=== PATIENT | female | born 1935 | race Caucasian/White ===

== ENCOUNTER 2017-10-07 08:58 | Day surgery (SDC) | payer MEDICARE, OTHER ==
[~2017-10-07] VITALS: Ht 162.6 cm; Wt 104.3 kg
[~2017-10-07 08:58] MED LIST: ALLER TEC PO; AMLO10 PO; AMLO5 PO; ASPI325 PO; AZIT500 PO; DOCU100 PO; Enalapril-Hctz1 EACH PO; FURO40 PO; GLUCOSAMINE CH1 EAC3 PO; Indapamide2.5 MG PO; LEVSOD50 PO; METO100ER PO; METO25 PO; METO50ER PO; METOPROLOL PO; MULTI VITAMIN1 EACH PO; Mucinex Dm Tab1 EAC1 PO; OMEPRAZOLE MAGN20 MG PO; OXYC5 PO; POTCHL10ER PO; PRAV20 PO; Prozac20 MG PO; Verapamil ER300 MG PO
[2017-10-07] MEDS ORDERED: ATOR40TA PO (10:27)
[2017-10-08 04:31] LABS: BASOPHILS ABSOLUTE AUTO 0.06 K/mm3 (0.00-0.23); BASOPHILS PERCENT AUTO 0 % (0-2); EOSINOPHILS ABSOLUTE AUTO 0.12 K/mm3 (0.00-0.68); EOSINOPHILS PERCENT AUTO 1 % (0-6); Hematocrit 28.4 % (33.0-51.0); Hemoglobin 9.3 g/dL (11.5-16.0); IMMATURE GRAN ABSOLUTE AUTO 0.04 K/mm3 (0.00-0.10); IMMATURE GRAN PERCENT AUTO 0 % (0-1); LYMPHOCYTES ABSOLUTE AUTO 1.34 K/mm3 (0.84-5.20); LYMPHOCYTES PERCENT AUTO 9 % (21-46); MONOCYTES ABSOLUTE AUTO 2.46 K/mm3 (0.16-1.47); MONOCYTES PERCENT AUTO 16 % (4-13); Mean Corpuscular HGB 30.5 pg (26.0-34.0); Mean Corpuscular HGB Conc 32.7 g/dL (31.5-36.5); Mean Corpuscular Volume 93 fL (80-100); Mean Platelet Volume 10.1 fL (9.1-12.4); NEUTROPHILS ABSOLUTE AUTO 10.99 K/mm3 (1.96-9.15); NEUTROPHILS PERCENT AUTO 73 % (41-73); Platelet Count 242 K/mm3 (150-400); RDW Standard Deviation 43.9 fL (35.1-46.3); Red Blood Cell Count 3.05 M/mm3 (3.80-5.20); White Blood Cell Count 15.01 K/mm3 (4.00-11.30)
[2017-10-08 04:51] LABS: Bun/Creatinine Ratio 24.8 (12.0-20.0); Calcium, Blood 8.9 mg/dL (8.5-10.1); Creatinine, Blood 1.37 mg/dL (0.40-1.00); Magnesium, Blood 1.5 mg/dL (1.6-2.4); Potassium, Blood 3.7 mmol/L (3.5-5.5)
[2017-10-08] MEDS ORDERED: WARF2.5 PO (18:27)
[2017-10-08] MEDS ORDERED: OXYC5 PO (18:32)
== END 2017-10-08 19:24 | disposition home or self-care (01) ==
LOC: ORSCMMR 08:58 → ORD 10:30 → ORSCMMR 10:30 → SURS 14:58 → ORSCMMR 22:42
PROVIDERS: Orthopaedic Surgery
PROC: 0SRC0J9 Replacement of Right Knee Joint with Synthetic Substitute, Cemented, Open Approach (ICD-10-PCS; principal; 2017-10-07 10:30)
DX: M17.11 Unilateral primary osteoarthritis, right knee (principal); I10 Essential (primary) hypertension; G47.33 Obstructive sleep apnea (adult) (pediatric); E03.9 Hypothyroidism, unspecified; E78.00 Pure hypercholesterolemia, unspecified; E66.01 Morbid (severe) obesity due to excess calories; Z68.39 Body mass index [BMI] 39.0-39.9, adult; Z79.899 Other long term (current) drug therapy
CPT/HCPCS: 36415; 73560-RT; 80048; 83735; 85025; 86850; 86900; 86901; 88300; 94762; 97110; 97116; 97161; 97530; C1713; C1776; G8978; G8979; G8980; J0171; J0690; J0735; J1885; J2250; J2405; J2795; J3010; J7120

== ENCOUNTER → 2020-10-25 | Outpatient (CLI) | payer MEDICARE, OTHER ==
[~2020-10-25] MED LIST changes: +ATOR40TA PO; +BUME1 PO; +FAMO20 PO; +HYDR10 PO; +SYMBICORT 80-10.2 GM IH; +VITAMIN B125000 MC1 PO; +WARF2.5 PO; +[UNRECOGNIZED DRUG - OTHER] PO
[2020-10-25 16:27] LABS: Source, Urine Clean Catch
[2020-10-25 17:25] LABS: Appearance, Urine Clear (Clear); Bilirubin, Urine Neg (Neg); Blood, Urine Neg (Neg); Color, Urine Yellow (P-Yellow); Glucose Qualitative, Urine Neg (Neg); Ketones, Urine Neg (Neg); Leukocyte Esterase, Urine Neg (Neg); Nitrite, Urine Neg (Neg); Protein, Urine 2+ (Neg); Urobilinogen, Urine NORM (Normal)
[2020-10-25 17:39] LABS: Bacteria Few /hpf; Red Blood Cells, Urine 0-2 /hpf (0-2); Squamous Epithelial Cells Few /hpf (Few)
[2020-10-25 18:01] LABS: Creatinine, Urine Random 51.8 mg/dL (27.00-270.00); Protein, Urine Random 41.4 mg/dL (0.0-11.9); Protein/Creat Ratio, Ur Random 0.8
== END | disposition home or self-care (01) ==
LOC: LAB SHORT 14:45 → LAB 14:45
PROVIDERS: Internal Medicine
DX: N18.5 Chronic kidney disease, stage 5 (principal)
CPT/HCPCS: 81001; 82570; 84156

== ENCOUNTER 2020-11-01 02:43 | Day surgery (SDC) | payer MEDICARE, OTHER ==
[~2020-11-01 02:43] MED LIST changes: -BUME1 PO; -FAMO20 PO; -HYDR10 PO; -SYMBICORT 80-10.2 GM IH; -VITAMIN B125000 MC1 PO; -[UNRECOGNIZED DRUG - OTHER] PO
[2020-11-01] MEDS ORDERED: HYDR10 PO ×2 (16:41→16:45)
[2020-11-01] MEDS ORDERED: VITAMIN B125000 MC1 PO (16:43)
[2020-11-01] MEDS ORDERED: [UNRECOGNIZED DRUG - OTHER] PO (16:44)
[2020-11-01] MEDS ORDERED: FAMO20 PO (16:44)
[2020-11-01] MEDS ORDERED: BUME1 PO (16:44)
[2020-11-01] MEDS ORDERED: SYMBICORT 80-10.2 GM IH (16:45)
== END 2020-11-01 17:48 | disposition home or self-care (01) ==
LOC: ATC 02:43
DX: E83.42 Hypomagnesemia (principal); I13.2 Hypertensive heart and chronic kidney disease with heart failure and with stage 5 chronic kidney disease, or end stage renal disease; N18.5 Chronic kidney disease, stage 5; I50.9 Heart failure, unspecified; E03.9 Hypothyroidism, unspecified; Z88.0 Allergy status to penicillin; Z88.8 Allergy status to other drugs, medicaments and biological substances; Z88.1 Allergy status to other antibiotic agents; Z91.041 Radiographic dye allergy status
CPT/HCPCS: 96365; 96366; J3475

== ENCOUNTER 2021-03-06 06:14 | Day surgery (SDC) | payer MEDICARE, OTHER ==
[~2021-03-06] VITALS: Ht 160 cm; Wt 109.0 kg
[~2021-03-06 06:14] MED LIST changes: +BUME1 PO; +FAMO20 PO; +HYDR10 PO; +SYMBICORT 80-10.2 GM IH; +VITAMIN B125000 MC1 PO; +[UNRECOGNIZED DRUG - OTHER] PO
[2021-03-06] MEDS ORDERED: HYDRA25 PO (06:39)
[2021-03-06] MEDS ORDERED: HYDCHL25 PO (06:40)
[2021-03-06] MEDS ORDERED: MAGNESIUM OXID500 MG PO (06:41)
--- NOTE | 2021-03-06 09:41 | NUR ---
PT HOB RAISED TO 45 DEGREES, RIGHT GROIN SITE SOFT NON TENDER WITH NO ACTIVE BLEEDING, OOZING, OR PAIN NOTED. PROVIDED WITH BREAKFAST TRAY, TOLERATES WITH NO DIFFICULTIES. C/O RIGHT ARM PAIN, IV ASSESSED, DOES NOT APPEAR TO BE INFILTRATED. REQUEST AND MEDICATED WITH PRN TYLENOL. WILL CONTINUE TO MONITOR. CALL LIGHT IN REACH.
--- NOTE | 2021-03-06 11:30 | NUR ---
PT OUT OF BED, AMBULATES WITH SLOW GAIT TO RESTROOM, 1 PER ASSIST. UNMEASURED VOID. RIGHT GROIN SITE REMAINS SOFT NON TENDER WITH NO ACTIVE BLEEDING OR OOZING NOTED. PT GETS DRESSED WITH NO NEEDED ASSISTANCE. IV REMOVED FROM RAC WITH CATH INTACT, PRESSURE DRESSING APPLIED.
--- NOTE | 2021-03-06 12:00 | NUR ---
PT VERBALIZED UNDERSTANDING OF D/C INSTRUCTIONS. PAPERWORK PROVIDED IN FOLDER. PT DAUGHTER ARRIVES TO DRIVE PT HOME, TAKEN OUT TO PRIVATE VEHICLE VIA W/C. NO ACUTE DISTRESS NOTED AT TIME OF DISCHARGE.
== END 2021-03-06 12:00 | disposition home or self-care (01) ==
LOC: MHTC 06:14
DX: I25.10 Atherosclerotic heart disease of native coronary artery without angina pectoris (principal); I35.0 Nonrheumatic aortic (valve) stenosis; I11.0 Hypertensive heart disease with heart failure; I50.9 Heart failure, unspecified
CPT/HCPCS: 76937; 93458; 99152; 99153; A9270; C1769; C1894; J1644; J2250; J3010; J7030; J7050; Q9967

== ENCOUNTER 2021-03-28 08:32 | Day surgery (SDC) | payer MEDICARE, OTHER ==
[~2021-03-28] VITALS: Ht 160 cm; Wt 100.7 kg
[~2021-03-28 08:32] MED LIST changes: +HYDCHL25 PO; +HYDRA25 PO; +MAGNESIUM OXID500 MG PO
--- NOTE | 2021-03-28 10:05 | NUR ---
PATIENT TO THE CATHLAB, WILL PREMEDICATE FOR IODINE ALLERGY IN THE LAB. PATIENT WAS GIVEN ASPIRIN AND PLAVIX ORDERED. SEE MEDICATION SHEET FOR ORDERS AND DOSAGE.
--- NOTE | 2021-03-28 12:15 | NUR ---
PATIENT RETURNS FROM THE CATHLAB WITH RIGHT RADIAL TR BAND IN PLACE AND RIGHT GROIN ANGIOSEAL SITE. BOTH CDI, NO HEMATOMA, NO BLEEDING. PATIENT PLACED ON THE MONITOR AND CALLED FOR A OVERNIGHT OBS BED. PENDING ASSIGNMENT FROM POWER REACTOR OPERATOR.
--- NOTE | 2021-03-28 12:17 | NUR ---
SBAR GIVEN TO EZRA BALDWIN
--- NOTE | 2021-03-28 12:32 | NUR ---
REPORT CALLED TO EZRA SAMUEL AND PATIENT TRANSFERED TO PCU #2. VVS. NO PAIN NOTED.
--- NOTE | 2021-03-28 13:14 | NUR ---
ADMISSION PATIENT TO PCU 2 FROM [facility]. REPORT RECIEVED FROM [facility] STAFF. TR BAND IN PLACE ON RIGHT WRIST, INFLATED WITH 20 MLS. NO BLEEDING UNDER TR BAND, CAP REFILL LESS THAN 2 SECONDS. RIGHT FEMORAL SITE COVERED WITH ANGIO SEAL. DRESSING C/D/I. PATIENT DENIES NUMBNESS OR TINGLING IN RIGHT ARM/LEG. PATIENT ALSO DENIES CHEST PAIN OR PRESSURE AT THIS TIME.
[2021-03-29 06:36] LABS: Bun/Creatinine Ratio 24.8 (12.0-20.0); Calcium, Blood 8.6 mg/dL (8.5-10.1); Creatinine, Blood 2.22 mg/dL (0.40-1.00); Potassium, Blood 3.6 mmol/L (3.5-5.5)
[2021-03-29 06:44] LABS: BASOPHILS ABSOLUTE AUTO 0.06 K/mm3 (0.00-0.23); BASOPHILS PERCENT AUTO 1 % (0-2); EOSINOPHILS ABSOLUTE AUTO 0.13 K/mm3 (0.00-0.68); EOSINOPHILS PERCENT AUTO 1 % (0-6); Hematocrit 28.1 % (33.0-51.0); IMMATURE GRAN ABSOLUTE AUTO 0.05 K/mm3 (0.00-0.10); IMMATURE GRAN PERCENT AUTO 0 % (0-1); LYMPHOCYTES ABSOLUTE AUTO 2.56 K/mm3 (0.84-5.20); LYMPHOCYTES PERCENT AUTO 20 % (21-46); MONOCYTES ABSOLUTE AUTO 1.75 K/mm3 (0.16-1.47); MONOCYTES PERCENT AUTO 14 % (4-13); Mean Corpuscular HGB 29.6 pg (26.0-34.0); Mean Corpuscular Volume 92 fL (80-100); Mean Platelet Volume 10.8 fL (9.1-12.4); NEUTROPHILS ABSOLUTE AUTO 8.21 K/mm3 (1.96-9.15); NEUTROPHILS PERCENT AUTO 64 % (41-73); Platelet Count 280 K/mm3 (150-400); RDW Standard Deviation 51.1 fL (35.1-46.3); Red Blood Cell Count 3.04 M/mm3 (3.80-5.20); White Blood Cell Count 12.76 K/mm3 (4.00-11.30)
[2021-03-29] MEDS ORDERED: ASPI81CH PO ×2 (08:50→08:51)
[2021-03-29] MEDS ORDERED: PLAVIX75 MG PO (08:52)
--- NOTE | 2021-03-29 12:07 | NUR ---
DISCHARGE PATIENT ALERT AND ORIENTED X4. VSS. DENIES CHEST PAIN OR PRESSURE. NO BLEEDING FROM RIGHT RADIAL OR RIGHT GROIN SITE. DISCHARGE PAPERWORK DISCUSSED WITH DAUGHTER AT BEDSIDE. PATIENT DISCHARGED VIA WHEELCHAIR WITH PCU STAFF. BELONGINGS ACCOMPANIED THE PATIENT.
== END 2021-03-29 12:00 | disposition home or self-care (01) ==
LOC: MHTC 08:32 → PCU 12:39 → MHTC 03-29 12:00
PROVIDERS: Internal Medicine Cardiovascular Disease
DX: I25.10 Atherosclerotic heart disease of native coronary artery without angina pectoris (principal); I35.0 Nonrheumatic aortic (valve) stenosis; I13.0 Hypertensive heart and chronic kidney disease with heart failure and stage 1 through stage 4 chronic kidney disease, or unspecified chronic kidney disease; I50.9 Heart failure, unspecified; N18.9 Chronic kidney disease, unspecified; I25.5 Ischemic cardiomyopathy; Z88.0 Allergy status to penicillin; Z88.1 Allergy status to other antibiotic agents; Z91.041 Radiographic dye allergy status; Z79.82 Long term (current) use of aspirin; Z79.899 Other long term (current) drug therapy
CPT/HCPCS: 36415; 76937; 80048; 85025; 85347; 92978; 93005; 93010; 99152; 99153; A9270; C1725; C1753; C1760; C1769; C1874; C1887; C1894; C9600; J1200; J1644; J1720; J2250; J3010; J7030; J7040; J7050; Q9967

== ENCOUNTER 2021-11-08 01:32 | Day surgery (SDC) | payer MEDICARE, OTHER ==
[~2021-11-08 01:32] MED LIST changes: +ASPI81CH PO; +PLAVIX75 MG PO; +POTA10T PO; -POTCHL10ER PO
[2021-11-08] MEDS ORDERED: THERA-D2000 UNIT PO (10:36)
[2021-11-08] MEDS ORDERED: Aspirin325 MG PO (10:36)
[2021-11-08] MEDS ORDERED: ALLEGRA ALLERG180 MG PO (10:39)
[2021-11-08] MEDS ORDERED: DOCU100 PO (10:40)
== END 2021-11-08 11:16 | disposition home or self-care (01) ==
LOC: ATC 01:32
DX: I13.0 Hypertensive heart and chronic kidney disease with heart failure and stage 1 through stage 4 chronic kidney disease, or unspecified chronic kidney disease (principal); N18.4 Chronic kidney disease, stage 4 (severe); D63.1 Anemia in chronic kidney disease; I50.9 Heart failure, unspecified; I35.0 Nonrheumatic aortic (valve) stenosis; E78.5 Hyperlipidemia, unspecified; E03.9 Hypothyroidism, unspecified; G47.33 Obstructive sleep apnea (adult) (pediatric); Z88.0 Allergy status to penicillin; Z88.8 Allergy status to other drugs, medicaments and biological substances; Z88.1 Allergy status to other antibiotic agents; Z91.041 Radiographic dye allergy status
CPT/HCPCS: 96365; J2916

== ENCOUNTER 2021-11-13 16:44 | Emergency (ER) | payer MEDICARE, OTHER ==
[~2021-11-13] VITALS: Ht 162.6 cm; Wt 113.4 kg
[~2021-11-13 16:44] MED LIST changes: +ALLEGRA ALLERG180 MG PO; +Aspirin325 MG PO; +THERA-D2000 UNIT PO
[2021-11-13 17:50] LABS: Influenza A, PCR NEGATIVE (NEGATIVE); Influenza B, PCR NEGATIVE (NEGATIVE); Resp Syncytial Virus, PCR NEGATIVE (NEGATIVE); SARS-Cov-2 (COVID-19) PCR, MMC NEGATIVE (NEGATIVE)
[2021-11-13 18:16] LABS: BASOPHILS ABSOLUTE AUTO 0.05 K/mm3 (0.00-0.23); BASOPHILS PERCENT AUTO 1 % (0-2); EOSINOPHILS ABSOLUTE AUTO 0.32 K/mm3 (0.00-0.68); EOSINOPHILS PERCENT AUTO 4 % (0-6); Hematocrit 29.5 % (33.0-51.0); Hemoglobin 9.5 g/dL (11.5-16.0); IMMATURE GRAN ABSOLUTE AUTO 0.06 K/mm3 (0.00-0.10); IMMATURE GRAN PERCENT AUTO 1 % (0-1); LYMPHOCYTES ABSOLUTE AUTO 1.39 K/mm3 (0.84-5.20); LYMPHOCYTES PERCENT AUTO 16 % (21-46); MONOCYTES ABSOLUTE AUTO 1.87 K/mm3 (0.16-1.47); MONOCYTES PERCENT AUTO 21 % (4-13); Mean Corpuscular HGB 29.3 pg (26.0-34.0); Mean Corpuscular HGB Conc 32.2 g/dL (31.5-36.5); Mean Corpuscular Volume 91 fL (80-100); NEUTROPHILS ABSOLUTE AUTO 5.26 K/mm3 (1.96-9.15); NEUTROPHILS PERCENT AUTO 59 % (41-73); Platelet Count 317 K/mm3 (150-400); RDW Standard Deviation 46.4 fL (35.1-46.3); Red Blood Cell Count 3.24 M/mm3 (3.80-5.20); White Blood Cell Count 8.95 K/mm3 (4.00-11.30)
[2021-11-13 18:41] LABS: Albumin, Blood 3.4 g/dL (3.4-5.0); Albumin/Globulin Ratio 0.7 (0.8-1.8); Bilirubin, Total 0.2 mg/dL (0.1-1.0); Bun/Creatinine Ratio 19.9 (12.0-20.0); Calcium, Blood 9.7 mg/dL (8.5-10.1); Creatinine, Blood 2.61 mg/dL (0.40-1.00); Globulin, Blood 4.9 g/dL (2.2-4.0); Potassium, Blood 4.4 mmol/L (3.5-5.5); Total Protein, Blood 8.3 g/dL (6.4-8.2)
== END 2021-11-13 23:31 | disposition home or self-care (01) ==
LOC: ER 16:44
PROVIDERS: Physician Assistant
DX: J06.9 Acute upper respiratory infection, unspecified (principal); J98.01 Acute bronchospasm; I10 Essential (primary) hypertension; E03.9 Hypothyroidism, unspecified; K21.9 Gastro-esophageal reflux disease without esophagitis; Z79.899 Other long term (current) drug therapy; Z79.02 Long term (current) use of antithrombotics/antiplatelets; Z79.52 Long term (current) use of systemic steroids; Z88.0 Allergy status to penicillin; Z88.8 Allergy status to other drugs, medicaments and biological substances; Z91.041 Radiographic dye allergy status; Z20.822 Contact with and (suspected) exposure to COVID-19
CPT/HCPCS: 0241U; 36415; 71046; 80053; 83880; 84484; 85025; 93005; 93010; 94640; 94664; A9270

== ENCOUNTER 2021-11-21 01:26 | Day surgery (SDC) | payer MEDICARE, OTHER | END 2021-11-21 11:45 | disposition home or self-care (01) | LOC: ATC 01:26 | DX: I12.9 Hypertensive chronic kidney disease with stage 1 through stage 4 chronic kidney disease, or unspecified chronic kidney disease (principal); N18.4 Chronic kidney disease, stage 4 (severe); D63.1 Anemia in chronic kidney disease; E78.5 Hyperlipidemia, unspecified; E03.9 Hypothyroidism, unspecified; G47.33 Obstructive sleep apnea (adult) (pediatric); Z88.0 Allergy status to penicillin; Z88.8 Allergy status to other drugs, medicaments and biological substances; Z79.82 Long term (current) use of aspirin; Z79.899 Other long term (current) drug therapy | CPT/HCPCS: 96365; J2916 ==

== ENCOUNTER 2021-12-05 03:35 | Day surgery (SDC) | payer MEDICARE, OTHER ==
--- NOTE | 2021-12-05 11:02 | NUR ---
LAB DRAWN FROM Jonathan COLIN.
[2021-12-05 11:07] LABS: BASOPHILS ABSOLUTE AUTO 0.05 K/mm3 (0.00-0.23); BASOPHILS PERCENT AUTO 0 % (0-2); EOSINOPHILS ABSOLUTE AUTO 0.09 K/mm3 (0.00-0.68); EOSINOPHILS PERCENT AUTO 1 % (0-6); Hematocrit 28.4 % (33.0-51.0); IMMATURE GRAN ABSOLUTE AUTO 0.45 K/mm3 (0.00-0.10); IMMATURE GRAN PERCENT AUTO 3 % (0-1); LYMPHOCYTES ABSOLUTE AUTO 2.73 K/mm3 (0.84-5.20); LYMPHOCYTES PERCENT AUTO 17 % (21-46); MONOCYTES ABSOLUTE AUTO 2.49 K/mm3 (0.16-1.47); MONOCYTES PERCENT AUTO 15 % (4-13); Mean Corpuscular HGB 28.7 pg (26.0-34.0); Mean Corpuscular HGB Conc 31.7 g/dL (31.5-36.5); Mean Corpuscular Volume 90 fL (80-100); Mean Platelet Volume 9.5 fL (9.1-12.4); NEUTROPHILS ABSOLUTE AUTO 10.65 K/mm3 (1.96-9.15); NEUTROPHILS PERCENT AUTO 65 % (41-73); Platelet Count 379 K/mm3 (150-400); RDW Coefficient Variation 14.6 % (11.7-14.2); RDW Standard Deviation 48.1 fL (35.1-46.3); Red Blood Cell Count 3.14 M/mm3 (3.80-5.20); White Blood Cell Count 16.46 K/mm3 (4.00-11.30)
[2021-12-05 11:31] LABS: Albumin, Blood 3.3 g/dL (3.4-5.0); Albumin/Globulin Ratio 0.8 (0.8-1.8); Bilirubin, Total 0.2 mg/dL (0.1-1.0); Bun/Creatinine Ratio 27.5 (12.0-20.0); Calcium, Blood 9.7 mg/dL (8.5-10.1); Creatinine, Blood 2.33 mg/dL (0.40-1.00); Free Thyroxine 1.05 ng/dL (0.70-1.60); Globulin, Blood 4.2 g/dL (2.2-4.0); Percent Saturation 22.2 % (15.0-50.0); Potassium, Blood 3.6 mmol/L (3.5-5.5); Thyroid Stimulating Hormone 0.248 uIU/mL (0.360-4.800); Total Protein, Blood 7.5 g/dL (6.4-8.2)
== END 2021-12-05 12:10 | disposition home or self-care (01) ==
LOC: ATC 03:35
PROVIDERS: Family Medicine
DX: I12.9 Hypertensive chronic kidney disease with stage 1 through stage 4 chronic kidney disease, or unspecified chronic kidney disease (principal); N18.4 Chronic kidney disease, stage 4 (severe); D63.1 Anemia in chronic kidney disease; R73.01 Impaired fasting glucose; E03.8 Other specified hypothyroidism; E21.3 Hyperparathyroidism, unspecified; D53.9 Nutritional anemia, unspecified; E78.5 Hyperlipidemia, unspecified; G47.33 Obstructive sleep apnea (adult) (pediatric); Z88.0 Allergy status to penicillin; Z88.8 Allergy status to other drugs, medicaments and biological substances; Z88.1 Allergy status to other antibiotic agents; Z91.041 Radiographic dye allergy status
CPT/HCPCS: 80053; 82306; 82728; 83036; 83540; 83550; 83970; 84439; 84443; 85025; 96365; J2916

== ENCOUNTER → 2022-09-25 | Outpatient (CLI) | payer MEDICARE, OTHER ==
[2022-09-26 14:44] LABS: Creatinine, Urine Random 30.3 mg/dL (27.00-270.00); Protein, Urine Random 50.5 mg/dL (0.0-11.9); Protein/Creat Ratio, Ur Random 1.7
== END | disposition home or self-care (01) ==
LOC: LAB SHORT 14:00 → LAB 14:00
PROVIDERS: Internal Medicine Nephrology
DX: N18.5 Chronic kidney disease, stage 5 (principal)
CPT/HCPCS: 82570; 84156

== ENCOUNTER → 2023-09-03 | Outpatient (CLI) | payer MEDICARE, OTHER ==
[2023-09-03 11:14] LABS: Source, Urine Clean Catch
[2023-09-03 18:45] LABS: Appearance, Urine Clear (Clear); Bilirubin, Urine Neg (Neg); Blood, Urine Neg (Neg); Color, Urine Yellow (P-Yellow); Glucose Qualitative, Urine Neg (Neg); Ketones, Urine Neg (Neg); Leukocyte Esterase, Urine Neg (Neg); Nitrite, Urine Neg (Neg); Protein, Urine 3+ (Neg); Specific Gravity, Urine 1.015 (1.003-1.022); Urobilinogen, Urine NORM (Normal)
[2023-09-03 19:01] LABS: Amorphous Light (0-Heavy); Bacteria Mod /hpf; Granular Casts 0-2 /lpf (0); Hyaline Casts 0-2 /lpf (0-2); Red Blood Cells, Urine 0-2 /hpf (0-2); Squamous Epithelial Cells Few /hpf (Few); Transitional Epithelial Cells Few /hpf (0-Rare); White Blood Cells, Urine 0-2 /hpf (0-5)
== END | disposition home or self-care (01) ==
LOC: LAB SHORT 10:45 → LAB 10:45
PROVIDERS: Hospitalist
DX: I12.0 Hypertensive chronic kidney disease with stage 5 chronic kidney disease or end stage renal disease (principal); N18.5 Chronic kidney disease, stage 5
CPT/HCPCS: 81001; 87086

== ENCOUNTER → 2023-10-16 | Outpatient (CLI) | payer MEDICARE, OTHER ==
[2023-10-16 14:53] LABS: Campylobacter Sp Not Detected (NOT DETECT); E. Coli O157 Not Detected (NOT DETECT); Enteroaggregative E. coli-EAEC Not Detected (NOT DETECT); Enteropathogenic E. coli-EPEC Not Detected (NOT DETECT); Enterotoxigenic E. coli-ETEC Not Detected (NOT DETECT); Plesiomonas Shigelloides Not Detected (NOT DETECT); Salmonella Sp Not Detected (NOT DETECT); Shiga Toxin-prod E. coli-STEC Not Detected (NOT DETECT); Shigella/Enteroin E. coli-EIEC Not Detected (NOT DETECT); Vibrio Cholerae Not Detected (NOT DETECT); Vibrio Sp Not Detected (NOT DETECT); Yersinia Enterocolitica Not Detected (NOT DETECT)
[2023-10-16 14:54] LABS: Adenovirus F 40/41 Not Detected (NOT DETECT); Astrovirus Not Detected (NOT DETECT); Cryptosporidium Not Detected (NOT DETECT); Cyclospora Cayetanensis Not Detected (NOT DETECT); Entamoeba Histolytica Not Detected (NOT DETECT); Giardia Lamblia Not Detected (NOT DETECT); Norovirus GI/GII Not Detected (NOT DETECT); Rotavirus A Not Detected (NOT DETECT); Sapovirus Not Detected (NOT DETECT)
== END ==
LOC: LAB 09:45 → LAB SHORT 09:45
PROVIDERS: Family Medicine
DX: R19.7 Diarrhea, unspecified (principal)
CPT/HCPCS: 87507

== ENCOUNTER 2024-08-28 21:09 | Inpatient (IN) | payer MEDICARE, OTHER ==
[~2024-08-28] VITALS: Ht 160 cm; Wt 86.3 kg
[~2024-08-28 21:09] MED LIST changes: +Calcium Chloride 10% 10 ML SYR IV ONE; +Sodium Bicarb 8.4% 50 mEq Syringe IV ONE; +VITAMIN B121000 MCG PO; -VITAMIN B125000 MC1 PO
[2024-08-28] MEDS ORDERED: Cefepime HCl 1,000 MG in NS 100 ML IV ONE (21:20)
[2024-08-28] MEDS ORDERED: Acetaminophen 650 MG Supp PR ONE (21:20)
[2024-08-28] MEDS ORDERED: Vancomycin HCL 2,000 MG in NS 520 ML IV ONE (21:20)
[2024-08-28 21:34] LABS: BASOPHILS ABSOLUTE AUTO 0.06 K/mm3 (0.00-0.23); BASOPHILS PERCENT AUTO 0 % (0-2); EOSINOPHILS ABSOLUTE AUTO 0.01 K/mm3 (0.00-0.68); EOSINOPHILS PERCENT AUTO 0 % (0-6); Hemoglobin 10.2 g/dL (11.5-16.0); IMMATURE GRAN ABSOLUTE AUTO 0.37 K/mm3 (0.00-0.10); IMMATURE GRAN PERCENT AUTO 3 % (0-1); LYMPHOCYTES ABSOLUTE AUTO 0.58 K/mm3 (0.84-5.20); LYMPHOCYTES PERCENT AUTO 4 % (21-46); MONOCYTES ABSOLUTE AUTO 1.33 K/mm3 (0.16-1.47); MONOCYTES PERCENT AUTO 9 % (4-13); Mean Corpuscular HGB Conc 31.9 g/dL (31.5-36.5); Mean Corpuscular Volume 100 fL (80-100); Mean Platelet Volume 10.4 fL (9.1-12.4); NEUTROPHILS PERCENT AUTO 84 % (41-73); NRBC ABSOLUTE 0.08 K/mm3 (0.00-0.02); NRBC Auto 0.6 /100 WBC (0.0-0.2); Platelet Count 197 K/mm3 (150-400); RDW Coefficient Variation 15.2 % (11.7-14.2); Red Blood Cell Count 3.19 M/mm3 (3.80-5.20); White Blood Cell Count 14.25 K/mm3 (4.00-11.30)
[2024-08-28 21:35] LABS: Base Excess Venous 8.5 mmol/L; Bicarbonate Venous 30.8 mmol/L (24.0-30.0); pH Blood Venous 7.45 (7.34-7.37)
[2024-08-28 22:00] LABS: Ethanol (Alcohol), Blood, Med <3 mg/dL; Free Thyroxine 1.49 ng/dL (0.70-1.60); Magnesium, Blood 1.8 mg/dL (1.6-2.4); Thyroid Stimulating Hormone 0.648 uIU/mL (0.360-4.800)
[2024-08-28 22:01] LABS: Alanine Aminotransfer (ALT/SGP 41 U/L (12-78); Albumin, Blood 2.6 g/dL (3.4-5.0); Albumin/Globulin Ratio 0.6 (0.8-1.8); Alk Phos 95 U/L (50-136); Anion Gap 12 mmol/L (3-11); Aspartate Aminotrans (AST/SGOT 41 U/L (12-37); Bilirubin, Total 0.5 mg/dL (0.1-1.0); Blood Urea Nitrogen 36 mg/dL (8-24); Bun/Creatinine Ratio 8.2 (12.0-20.0); CO2, Blood 27 mmol/L (21-32); Calcium, Blood 8.9 mg/dL (8.5-10.1); Chloride, Blood 99 mmol/L (98-108); Creatinine, Blood 4.39 mg/dL (0.40-1.00); Globulin, Blood 4.4 g/dL (2.2-4.0); Glomerular Filtration Rate 9 (60-); Glucose, Blood 142 mg/dL (70-99); Phosphorus, Blood 2.6 mg/dL (2.5-4.9); Potassium, Blood 4.2 mmol/L (3.5-5.5); Sodium, Blood 134 mmol/L (136-145)
[2024-08-28 22:50] LABS: International Normalized Ratio 1.14; Prothrombin Time Results 12.1 Sec (9.7-11.5)
[2024-08-28] MEDS ORDERED: Diltiazem HCl 5 MG / ML 5ML Vial IV ONE (22:55)
[2024-08-29] VITALS (44 sets, daily range): BP systolic 92–131; BP diastolic 49–99
[2024-08-29] MEDS ORDERED: Phentolamine Mesylate 5 MG/2 ML Vial SC ONE (00:45)
[2024-08-29] MEDS ORDERED: Ondansetron HCl 2 MG / ML 2ML Vial IV PRN (00:50)
[2024-08-29] MEDS ORDERED: LEVOTHYROXINE100 M10 PO (01:42)
[2024-08-29] MEDS ORDERED: NS 250 ML IV PRN (02:05)
[2024-08-29] MEDS ORDERED: Albumin (Human) 25gm/100ml 100 ML IV ONE (02:40)
[2024-08-29 03:37] LABS: BASOPHILS ABSOLUTE AUTO 0.07 K/mm3 (0.00-0.23); BASOPHILS PERCENT AUTO 0 % (0-2); EOSINOPHILS ABSOLUTE AUTO 0.01 K/mm3 (0.00-0.68); EOSINOPHILS PERCENT AUTO 0 % (0-6); Hematocrit 28.1 % (33.0-51.0); Mean Corpuscular Volume 103 fL (80-100); Mean Platelet Volume 10.8 fL (9.1-12.4); NRBC ABSOLUTE 0.03 K/mm3 (0.00-0.02); NRBC Auto 0.2 /100 WBC (0.0-0.2); Platelet Count 185 K/mm3 (150-400); RDW Coefficient Variation 15.2 % (11.7-14.2); RDW Standard Deviation 54.6 fL (35.1-46.3); Red Blood Cell Count 2.73 M/mm3 (3.80-5.20); White Blood Cell Count 18.07 K/mm3 (4.00-11.30)
[2024-08-29 03:39] LABS: IMMATURE GRAN PERCENT AUTO 3 % (0-1); LYMPHOCYTES ABSOLUTE AUTO 1.03 K/mm3 (0.84-5.20); LYMPHOCYTES PERCENT AUTO 6 % (21-46); MONOCYTES ABSOLUTE AUTO 2.67 K/mm3 (0.16-1.47); MONOCYTES PERCENT AUTO 15 % (4-13); NEUTROPHILS ABSOLUTE AUTO 13.69 K/mm3 (1.96-9.15); NEUTROPHILS PERCENT AUTO 76 % (41-73)
[2024-08-29 04:00] LABS: Albumin, Blood 2.4 g/dL (3.4-5.0); Albumin/Globulin Ratio 0.6 (0.8-1.8); Bilirubin, Total 0.7 mg/dL (0.1-1.0); Bun/Creatinine Ratio 8.2 (12.0-20.0); Calcium, Blood 9.4 mg/dL (8.5-10.1); Creatinine, Blood 4.62 mg/dL (0.40-1.00); Globulin, Blood 3.9 g/dL (2.2-4.0); Potassium, Blood 3.7 mmol/L (3.5-5.5); Total Protein, Blood 6.3 g/dL (6.4-8.2)
[2024-08-29 04:23] LABS: Influenza A, PCR NEGATIVE (NEGATIVE); Influenza B, PCR NEGATIVE (NEGATIVE); Resp Syncytial Virus, PCR NEGATIVE (NEGATIVE); SARS-Cov-2 (COVID-19) PCR, MMC NEGATIVE (NEGATIVE)
--- NOTE | 2024-08-29 05:06 | NUR ---
ER ADMIT TO ICU 10: PT ARRIVED TO THE UNIT AT 0030; PT TRANSFERRED TO NEW BED VIA SLID SHEET. PT ADMITED WITH SEPTIC SHOCK SECONDARY TO SUSPECTED PNA. PT ARRIVES ON LEVO GTT @ 5 MCG, NC @ 3 LPMS. PT A&O X 4, PLEASANT, COOPERATIVE WITH CARE AND DROWSY. PT DENIES PAIN AT THIS TIME. ON MONITOR PT AFIB WITH RATE 100-130'S ON ARRIVAL. SBP 110-120'S AND MAPS 65<; PT DENIES CHEST PAIN/PRESSURE. LUNG SOUNDS ARE CLEAR T/O; LLL DIMINISHED. PT DENIES SOB, SPO2 94<. NORMOACTIVE BT, ABD OBSES, SOFT. PT NPO AT THIS TIME. ATTENDS IN PLACE, PT REPORTS ESRD AND OLIGURIA @ BASELINE. CENTRAL LINE TO R. FEM THAT WAS PLACED IN ER; SITE SECURED WITH SUTURES, LEVO INFUSING. LEVO INFILTRATED IN LFA PIV PER SARBJIT RN; PARKS AND RECREATION WORKER CONTANTED PHARMACY TO GET REGLITINE ORDERED; THIS RN ADMINISTED TO INFILTRATION SITE. PT'S DAUGHTER, JOHANNA, @ BEDSIDE AND HELPED WITH ADMISSION QUESTIONS; JOHANNA WAS UPDATED ON CURRENT CARE PLAN. PT MAKES NEEDS KNOWN APPROPRIATELY. BED LOWERED, CALL LIGHT IN REACH.
--- NOTE | 2024-08-29 05:57 | NUR ---
SHIFT SUMMARY: NO ACUTE CHANGES SINCE LAST NIGHT. LEVO TITRATED OFF, SBP 100-110, MAP 65<. PT REMAINS ON NC @ 3LPM. UNABLE TO OBTAIN URINE COLLECTION AT THIS TIME, PT OLIGURIC; BLADDER SCAN COMPLETED AND SHOWING 41 MLS OF URINE IN BLADDER. PT SLEEPING AT THIS TIME. BED LOWERED, CALL LIGHT IN REACH, WILL REPORT OFF TO ONCOMING RN.
[2024-08-29] MEDS ORDERED: METOPROLOL TART25 MG PO (08:39)
[2024-08-29] MEDS ORDERED: ELIQUIS2.5 MG PO (08:43)
[2024-08-29] MEDS ORDERED: TORSE20 PO (08:45)
[2024-08-29] MEDS ORDERED: ALLO100 PO (08:46)
[2024-08-29] MEDS ORDERED: Heparin Sodium,Porcine 5,000 UNIT/0.5 ML SDV SC SCH (09:00)
--- NOTE | 2024-08-29 10:35 | NUR ---
ASSUMED CARE AT 0700 PT LAYING IN BED SLEEPING AT SHIFT CHANGE. SHE IS MILDLY CONFUSED, UNSURE WHERE SHE IS, BUT IS ORIENTED TO SELF/DATE/PERSON AND FOLLOWS DIRECTIONS; LETHARGIC AND SLEEPS WHEN NOT STIMULATED. SPO2 >98% ON 2L NC WHILE SLEEPING. AFEBRILE. AFIB NOTED WITH RATE 70-80'S. SBP 100-120'S WITH MAP >65; LEVOPHED ON SB SINCE PREVIOUS SHIFT. FISTULA NOTED TO RUE; BRUIT AND THRILL NOTED. CENTRAL LINE TO RT GROIN PATENT, NO SIGNS OF BLEEDING OR HEMATOMA. SEE SHIFT ASSESSMENT FOR FULL ASSESSMENT.
[2024-08-29] MEDS ORDERED: Cefepime HCl 1,000 MG in NS 100 ML IV SCH (16:00)
[2024-08-29] MEDS ORDERED: Metoprolol Tartrate 25 MG Tab PO SCH ×2 (18:11→21:00)
--- NOTE | 2024-08-29 18:50 | NUR ---
END OF SHIFT SUMMARY NO ACUTE EVENTS SINCE LAST NOTE. SHE SLEPT MOST OF THE DAY BUT WOKE UP AT 1630 ALERT. SHE IS ABLE TO TOLERATE SMALL AMOUNT OF PO INTAKE. AROUND 1700 PT HR INCREASED TO 120-150'S; CALL MADE TO DR RUSS WHO INSTRUCTED TO START SCHEDULED METOPROLOL NOW INSTEAD OF 2100. BP STABLE DURING ELEVATED HR. SEVERAL FAMILY MEMBERS AT BEDSIDE. WILL REPORT PM RN WHEN AVAILABLE.
[2024-08-29] MEDS ORDERED: Digoxin 0.25 MG/ML 2ML Amp IV SCH (20:00)
--- NOTE | 2024-08-29 20:44 | NUR ---
ASSUMPTION OF CARE: ASSUMED THE CARE OF PT AT 1900 FROM DALE MUNGUIA. PT A&OX3 UNAWARE OF WHERE SHE IS AND HAS SOME MILD CONFUSION. PT LETHARGIC AND FALLS ASLEEP QUICKLY WHEN NOT STIMULATED. PT ON 2.5 LITERS NC SATTING MID 90'S DENIES SOB. DIMINISHED IN LLL PT ON ANALYSIS LEAD SBP 110'S-120'S AND DENIES CP. PT TOLERATING PO INTAKE AND NO COMPLAINTS OF NAUSEA AND VOMITING. PT HAS NOT YET VOIDED BUT MAKES LITTLE URINE DUE TO DIALYSIS PT. PG TO BRENNEN PATENT AND SALINE LOCKED. FISTULA TO WILLIE WITH SOME BRUISING NOTED AROUND THE SITE. NO BM YET. FAMILY AT THE BEDSIDE UPDATED TO PT CARE.BED LOWERED AND LOCKED W/CALL LIGHT IN REACH.
[2024-08-29] MEDS ORDERED: Apixaban 5 MG Tab PO SCH (21:00)
--- NOTE | 2024-08-29 21:18 | NUR ---
ASSUMED CARE OF PT WITH ERIN NURSING RN STUDENT AT 1900. ASSESSMENT COMPLETED AND DOCUMENTED TOGETHER.
--- NOTE | 2024-08-29 22:30 | NUR ---
update: PT'S SON PUSHED CALL LIGHT FOR PT STATING HE GAVE HER A DRINK OF WATER AND SHE WAS COUGHING UNCONTROLLABLY. PT WAS FOUND TO BE LYING FLAT. PT SAT UPRIGHT IN BED, HR SPIKED TO 160'S. PT ENCOURAGED TO COUGH AND SPIT OUT SECRETIONS. SON EDUCATED ON MAKING SURE PT IS UPRIGHT AND AWAKE BEFORE GIVING THE PT FLUIDS.
[2024-08-30] VITALS (19 sets, daily range): BP systolic 82–144; BP diastolic 42–75
[2024-08-30 04:53] LABS: Iron Serum 15 ug/dL (50-170); Percent Saturation 10.9 % (15.0-50.0); Total Iron Binding Capacity 138 ug/dL (250-450)
[2024-08-30 04:54] LABS: Albumin, Blood 2.5 g/dL (3.4-5.0); Anion Gap 11 mmol/L (3-11); Blood Urea Nitrogen 53 mg/dL (8-24); CO2, Blood 29 mmol/L (21-32); Calcium, Blood 8.8 mg/dL (8.5-10.1); Chloride, Blood 101 mmol/L (98-108); Creatinine, Blood 5.29 mg/dL (0.40-1.00); Glomerular Filtration Rate 7 (60-); Glucose, Blood 97 mg/dL (70-99); Phosphorus, Blood 3.7 mg/dL (2.5-4.9); Sodium, Blood 137 mmol/L (136-145)
[2024-08-30 05:02] LABS: Hematocrit 26.1 % (33.0-51.0); Hemoglobin 8.5 g/dL (11.5-16.0); Mean Corpuscular HGB 32.9 pg (26.0-34.0); Mean Corpuscular HGB Conc 32.6 g/dL (31.5-36.5); Mean Corpuscular Volume 101 fL (80-100); Mean Platelet Volume 10.9 fL (9.1-12.4); NRBC ABSOLUTE 0.02 K/mm3 (0.00-0.02); NRBC Auto 0.1 /100 WBC (0.0-0.2); Platelet Count 157 K/mm3 (150-400); RDW Standard Deviation 53.7 fL (35.1-46.3); Red Blood Cell Count 2.58 M/mm3 (3.80-5.20); White Blood Cell Count 15.24 K/mm3 (4.00-11.30)
--- NOTE | 2024-08-30 05:50 | NUR ---
SHIFT SUMM: NO ACUTE CHANGES OVERNIGHT. REMAINS A&O3-4 AND ABLE TO SLEEP THROUGHOUT THE NIGHT.CONTINUES ON 2.5LITERS NC AND DENIES SOB. REMAINS IN AFIB AND 4 BEAT RUN OF V-TACH NOTED THIS EVENING STRIP IN CHART.SBP 100'S-120'S WITH MAP GREATER THAN 65 AND HR 70'S-80'S. DENIES CP AND PAIN THROUGHOUT. PG REMAINS PATENT AND SALINE LOCKED TO BRENNEN. NO URINE THIS SHIFT RELATED TO BEING A DIALYSIS PT. NO BM THIS SHIFT AND TOLERATING PO INTAKE. PT'S SON REMAINS AT BEDSIDE.BED LOW AND LOCKED W/CALL LIGHT IN REACH.
[2024-08-30] MEDS ORDERED: Levothyroxine Sodium 0.088 MG Tab PO SCH (06:00)
[2024-08-30] MEDS ORDERED: Levothyroxine Sodium 0.1 MG Tab PO SCH (06:00)
--- NOTE | 2024-08-30 07:30 | NUR ---
CARE ASSUMPTION DURING BEDSIDE SHIFT REPORT W ERIN AND JOSE RN'S THE PT IS LYING IN BED W HER SON AT THE BEDSIDE. PT AWAKENS WE ENTERED THE ROOM. PT IS ALERT AND ORIENTED COMMUNICATING APPROPRIATELY W STAFF. PT W SPO2 >95% ON 2.5L NC SO THIS RN TITARTING THIS DOWN TO 1L NC. MONITOR SHOWING AFIB IN THE 70'S. PT DENYING ANY PAIN AT THIS TIME. PLAN FOR PT JADEN RECIEVE DIALYSIS THIS AM.
[2024-08-30] MEDS ORDERED: Cholecalciferol 1000 Unit Tablet (=25MCG) PO SCH (09:00)
[2024-08-30] MEDS ORDERED: Epoetin Alfa-EPBX 10,000 Unit/ML 1ML Vial SC SCH (09:00)
[2024-08-30] MEDS ORDERED: Allopurinol 100 MG Tab PO SCH (09:00)
[2024-08-30] MEDS ORDERED: Misc. Tablet PO SCH (09:00)
[2024-08-30] MEDS ORDERED: Famotidine 20 MG Tab PO SCH (09:00)
[2024-08-30] MEDS ORDERED: Atorvastatin 40 MG Tab PO SCH (09:00)
[2024-08-30] MEDS ORDERED: Loratadine 10 MG Tab PO SCH (09:00)
[2024-08-30] MEDS ORDERED: Vancomycin HCL 750 MG in NS 250 ML IV ONE (14:00)
--- NOTE | 2024-08-30 18:17 | NUR ---
DAY SHIFT SUMMARY PT HAS BEEN ALERT AND ORIENTED THIS SHIFT COMMUNICATING APPROPRIATELY W STAFF. PT VISIBLY VERY TIRED AFTER DIALYSIS SESSION. PT AT DIALYSIS FOR AAPROX 4 HOURS THIS SHIFT. MONITOR SHOWING AFIB 70'S-80'S W FREQUENT PVC'S THIS SHIFT, AM DOSE OF METOPROLOL HELD DUE TO SOFT BP PER DR. NEWMAN. PT'S BP SOFT BUT STABLE MAPS >65 THIS SHIFT. PT SPO2 >92% THIS SHIFT ON 2L NC THIS SHIFT. PT W POOR PO INTAKE BUT HAS DONE WELL W THE NEPRO SHAKES. PT W NO URINE OUTPUT THIS SHIFT. PT HAVING 2 BM'S THIS SHIFT. PT HAVING 20 BEAT RUN OF VTACH AT 1800, DR. NEWMAN CALLED AND NOTIFED OF VTACH. REPEAT CHEMISTRY ORDERED, RESULTS PENDING AT THIS TIME. PT DENIES ANY SYMPTOMS W VTACH. WILL REPORT TO ONCOMING RN.
[2024-08-30 18:57] LABS: Magnesium, Blood 1.9 mg/dL (1.6-2.4)
[2024-08-30 19:06] LABS: Albumin, Blood 2.6 g/dL (3.4-5.0); Albumin/Globulin Ratio 0.7 (0.8-1.8); Bilirubin, Total 0.6 mg/dL (0.1-1.0); Bun/Creatinine Ratio 9.3 (12.0-20.0); Creatinine, Blood 3.55 mg/dL (0.40-1.00); Globulin, Blood 3.7 g/dL (2.2-4.0); Phosphorus, Blood 1.9 mg/dL (2.5-4.9); Potassium, Blood 3.6 mmol/L (3.5-5.5); Total Protein, Blood 6.3 g/dL (6.4-8.2)
[2024-08-30] MEDS ORDERED: Potassium Phosphate Dibasic 10 MM in Dextrose 5% 250 ML IV STA (19:41)
--- NOTE | 2024-08-30 22:26 | NUR ---
ASSUMPTION OF CARE: PT MORE DROWSY THIS EVENING RELATED TO DIALYSIS TREATMENT TODAY AND STATES THAT SHE IS TIRED AND WANTS TO SLEEP. PT A&O3-4 AND FOLLOWS DIRECTIONS. PT ON 2-3L NC AND SATTING 92-94% AND DENIES SOB. PT IN AFIB W/FREQUENT PVC'S. HR 70-90, SBP SOFT 80'S-110'S.METOPROLOL GIVEN PER EMMIE HOSPITALIST DESPITE SOFT BP RELATED TO HR TRENDING UP. PT TOLERATING PO INTAKE AND NO GI COMPLAINTS. NO URINE YET. PG TO BRENNEN PATENT, INFUSING K-PHOS. FISTULA TO WILLIE WITH NOTICABLE BRUISING AND FAMILY AT THE BEDSIDE AND CALL LIGHT IN REACH.
[2024-08-31 05:00] VITALS: BP 117/71
--- NOTE | 2024-08-31 05:57 | NUR ---
SHIFT SUMM: PT HAS BEEN RESTING/SLEEPING MOST OF THE SHIFT WITH SON AT BEDSIDE. PT WENT FROM 2L NC TO 3L NC BECAUSE SHE WAS SPO2 IN THE LOW 80'S. SINCE THEN PT HAS BEEN SATTING 94-98%. PT IS ON CARDIAC MONITORING AND HAS A HISTORY OF A-FIB AND HR HAS BEEN JUMPING AROUND FROM 80'S-90'S. PT HAS HAD NO URINE THIS SHIFT BUT DID HAVE AN INCONTINENT BM THIS MORNING. PT HAS BEEN REPOSITIONED OFTEN WITH 2 PERSON ASSISTANCE AND HAS NO COMPLAINTS.PT HAS PATENT PG IN BRENNEN THAT DRAWS.PT HAS BEEN VERY TIRED THIS SHIFT BUT AWAKENS WHEN SPOKEN TO AND WAS ALERT AND ORIENTED X4. PT HAS BED DOWN LOW AND LOCKED W/CALL LIGHT IN REACH.
[2024-08-31 06:03] LABS: Albumin, Blood 2.4 g/dL (3.4-5.0); Anion Gap 8 mmol/L (3-11); Blood Urea Nitrogen 35 mg/dL (8-24); Bun/Creatinine Ratio 9.2 (12.0-20.0); CO2, Blood 32 mmol/L (21-32); Calcium, Blood 8.5 mg/dL (8.5-10.1); Chloride, Blood 98 mmol/L (98-108); Creatinine, Blood 3.82 mg/dL (0.40-1.00); Glomerular Filtration Rate 11 (60-); Glucose, Blood 107 mg/dL (70-99); Potassium, Blood 4.1 mmol/L (3.5-5.5); Sodium, Blood 134 mmol/L (136-145); Vancomycin, Random 30.2 ug/mL
[2024-08-31 08:48] VITALS: BP 122/73
--- NOTE | 2024-08-31 11:05 | NUR ---
Spiritual Care Visit Pt. is awake and welcomed my visit. Pt is pleasant, but s[eaks very softly and slowly. Pts. son is at bedside. Facilitated a life review and considered matters of roque and belief. Pt. displayed evidence of engagement and understanding. Prayed for the Pt. Pt. verbalized gratitude for th spiritual care visit and welcomed this coating mixer to return.
--- NOTE | 2024-08-31 13:17 | NUR ---
patient arrived to med floor from pcu. Family member accompanies patient and LIZBETH Navarrete. patient is transferred to bed from wheel chair using 2 staff and gait belt. Patient has no s/sx of distress noted. Tele monitor placed on patient by Shruti NIEVES. Per engine monitor rhythm is AFiB with pvc's at 89. Patient requesting SCD's. Will contact hospitalist and request order. CAll light in reach. Bed at lowest level. [address] Will continue to monitor this patient until primary AIR CARGO GROUND CREW SUPERVISOR Juan returns from lunch break.
[2024-08-31 14:55] VITALS: BP 112/59
--- NOTE | 2024-08-31 17:18 | NUR ---
PT TRANSFERED FROM ICU. PT HAS NO SOB, CHEST PAIN OR C/O PAIN
--- NOTE | 2024-08-31 18:28 | NUR ---
PALLIATIVE CARE NOTE: 1700 MET WITH PT IN HER ROOM. PT IS AWAKE AND ABLE TO PARTICIPATE IN MEANINGFUL DISCUSSION. PT IS IMPROVED FROM YESTERDAY AND DOES NOT FALL ASLEEP DURING VISIT. DISCUSSED GOALS OF CARE WITH PT. PT STATES SHE IS FEELING BETTER AND ALMOST READY TO GO BACK HOME. PT DENIES PAIN, NAUSEA, SOB. SHE DOES REPORT SHE IS FEELING WEAK. PT STATES HER FAMILY TAKES HER TO HER DIALYSIS APPOINTMENTS AND SHE FEELS LIKE SHE WILL BE ABLE TO MAKE HER APPOINTMENTS. PT STATES SHE DOES WANT TO CONTINUE TO GO DIALYSIS AND AGREES SHE STILL HAS QUALITY OF LIFE AT HOME. DISCUSSED POLST WITH PT. SHE WANTS TO CONTINUE WITH DNR STATUS AND WOULD BE OKAY TO BE ON A VENTILATOR FOR SHORT TIME IF NEEDED. POLST PLACED ON CHART. CALL PLACED TO DAUGHTER JOHANNA. HER NUMBER WAS ON WHITE BOARD IN ROOM. DISCUSSED WITH JOHANNA CONVERSATION WITH HER MOTHER. JOHANNA STATES SHE IS SPOKESPERSON AND WILL RELAY INFORMATION TO OTHER FAMILY. JOHANNA SAID SHE HAS 5 SIBLINGS. JOHANNA DENIES ANY CONCERNS AT THIS TIME. PLAN AT THIS TIME IS FOR THEIR MOM TO GO TO SNF FOR A COUPLE OF DAYS AND THEN COME HOME.
[2024-08-31 20:39] VITALS: BP 119/51
[2024-08-31] MEDS ORDERED: Acetaminophen 500 MG Tab PO PRN (21:50)
[2024-09-01] VITALS (18 sets, daily range): BP systolic 70–136; BP diastolic 31–85
--- NOTE | 2024-09-01 05:09 | NUR ---
PT RESTING QUIETLY T/O SHIFT. PT SITTING WITH HOB ELEVATED REPORTED TO HELP WITH COUGHING UP SECRETIONS. PT HAS SWOLLOWED SECRETIONS COUGHED UP. C/O PAIN IN R HIP, PT WAS ADJUSTED TO RELIVE PRESSURE AND WAS SUGGESTED TO LAY HOB DOWN BELOW TO 45 DEGRESS, PT REPORTED SHE LIKE HOB AT ALMOST 90 DEGREES. TYELNOL GIVEN FOR HIP PAIN RX. PT ADJUSTED APPROXIMATELY EVERY 2 HOURS TO RELIEVE PRESSURE. BILATERAL BREATH SOUNDS ARE CLEAR WITH DIMINISHED BILATERAL BASES. MOIST NON PRODUCTIVE COUGH NOTED. PT IS WEAK BUT HAS EQUAL WHEAT CLEANER X 4. PUPILS ARE EQUAL AND REACTIVE TO LIGHT. FAMILT AT BEDSIDE.
[2024-09-01 05:55] LABS: BASOPHILS ABSOLUTE AUTO 0.12 K/mm3 (0.00-0.23); BASOPHILS PERCENT AUTO 1 % (0-2); EOSINOPHILS ABSOLUTE AUTO 0.18 K/mm3 (0.00-0.68); EOSINOPHILS PERCENT AUTO 1 % (0-6); Hematocrit 27.7 % (33.0-51.0); Hemoglobin 9.1 g/dL (11.5-16.0); IMMATURE GRAN ABSOLUTE AUTO 0.67 K/mm3 (0.00-0.10); IMMATURE GRAN PERCENT AUTO 5 % (0-1); LYMPHOCYTES ABSOLUTE AUTO 1.66 K/mm3 (0.84-5.20); LYMPHOCYTES PERCENT AUTO 12 % (21-46); MONOCYTES ABSOLUTE AUTO 1.59 K/mm3 (0.16-1.47); MONOCYTES PERCENT AUTO 12 % (4-13); Mean Corpuscular HGB Conc 32.9 g/dL (31.5-36.5); Mean Corpuscular Volume 100 fL (80-100); Mean Platelet Volume 10.9 fL (9.1-12.4); NEUTROPHILS ABSOLUTE AUTO 9.29 K/mm3 (1.96-9.15); NEUTROPHILS PERCENT AUTO 69 % (41-73); Platelet Count 141 K/mm3 (150-400); RDW Standard Deviation 53.9 fL (35.1-46.3); Red Blood Cell Count 2.76 M/mm3 (3.80-5.20); White Blood Cell Count 13.51 K/mm3 (4.00-11.30)
[2024-09-01 06:34] LABS: Albumin, Blood 2.3 g/dL (3.4-5.0); Anion Gap 11 mmol/L (3-11); Blood Urea Nitrogen 46 mg/dL (8-24); Bun/Creatinine Ratio 9.9 (12.0-20.0); CO2, Blood 30 mmol/L (21-32); Calcium, Blood 8.4 mg/dL (8.5-10.1); Chloride, Blood 97 mmol/L (98-108); Creatinine, Blood 4.63 mg/dL (0.40-1.00); Glomerular Filtration Rate 9 (60-); Glucose, Blood 98 mg/dL (70-99); Magnesium, Blood 1.9 mg/dL (1.6-2.4); Phosphorus, Blood 4.1 mg/dL (2.5-4.9); Potassium, Blood 3.8 mmol/L (3.5-5.5); Sodium, Blood 134 mmol/L (136-145); Vancomycin, Random 27.9 ug/mL
[2024-09-01] MEDS ORDERED: Albumin (Human) 25gm/100ml 100 ML IV ONE (10:05)
[2024-09-01 12:49] LABS: HEPATITIS B SURFACE ANTIBODY <3.10 IU/L
[2024-09-01 12:54] LABS: HEPATITIS B SURFACE ANTIGEN Negative (Negative)
[2024-09-01 12:55] LABS: HEPATITIS B SURFACE ANTIGEN Negative (Negative)
[2024-09-01 13:25] LABS: HBV CORE ANTIBODIES,TOTAL Negative (Negative)
[2024-09-01] MEDS ORDERED: GuaiFENesin 100 MG/5 ML 5ML UDC PO PRN (20:30)
[2024-09-01] MEDS ORDERED: Mirtazapine 15 MG Tab PO SCH (21:00)
--- NOTE | 2024-09-02 03:52 | NUR ---
SHIFT SUMMARY PATIENT HAS BEEN SLEEPING INTERMITTANTLY BETWEEN NURSING CARE. SHE HAS NEEDED PRN COUGH MEDICATION X2 ON THIS SHIFT. VITAL SIGNS ARE STABLE. DAUGHTER HAS REMAINED AT THE BEDSIDE. SAFETY PRECAUTIONS ARE BEING MAINTAINED.
[2024-09-02 03:56] VITALS: BP 127/57
[2024-09-02 05:10] LABS: BASOPHILS ABSOLUTE AUTO 0.06 K/mm3 (0.00-0.23); BASOPHILS PERCENT AUTO 0 % (0-2); EOSINOPHILS ABSOLUTE AUTO 0.19 K/mm3 (0.00-0.68); EOSINOPHILS PERCENT AUTO 1 % (0-6); Hematocrit 27.2 % (33.0-51.0); Hemoglobin 8.5 g/dL (11.5-16.0); IMMATURE GRAN PERCENT AUTO 4 % (0-1); LYMPHOCYTES ABSOLUTE AUTO 1.58 K/mm3 (0.84-5.20); LYMPHOCYTES PERCENT AUTO 11 % (21-46); MONOCYTES ABSOLUTE AUTO 1.59 K/mm3 (0.16-1.47); MONOCYTES PERCENT AUTO 11 % (4-13); Mean Corpuscular HGB Conc 31.3 g/dL (31.5-36.5); Mean Corpuscular Volume 102 fL (80-100); Mean Platelet Volume 10.7 fL (9.1-12.4); NEUTROPHILS ABSOLUTE AUTO 11.02 K/mm3 (1.96-9.15); NEUTROPHILS PERCENT AUTO 73 % (41-73); Platelet Count 130 K/mm3 (150-400); RDW Coefficient Variation 14.9 % (11.7-14.2); RDW Standard Deviation 54.8 fL (35.1-46.3); Red Blood Cell Count 2.66 M/mm3 (3.80-5.20); White Blood Cell Count 15.04 K/mm3 (4.00-11.30)
[2024-09-02 05:33] LABS: Albumin, Blood 2.5 g/dL (3.4-5.0); Anion Gap 9 mmol/L (3-11); Blood Urea Nitrogen 40 mg/dL (8-24); Bun/Creatinine Ratio 10.8 (12.0-20.0); CO2, Blood 31 mmol/L (21-32); Chloride, Blood 101 mmol/L (98-108); Creatinine, Blood 3.72 mg/dL (0.40-1.00); Glomerular Filtration Rate 11 (60-); Glucose, Blood 106 mg/dL (70-99); Phosphorus, Blood 3.4 mg/dL (2.5-4.9); Potassium, Blood 4.2 mmol/L (3.5-5.5); Sodium, Blood 137 mmol/L (136-145); Vancomycin, Random 23.1 ug/mL
--- NOTE | 2024-09-02 07:21 | NUR ---
ASSUMPTION OF CARE: ASSUMED CARE OF PATIENT. ASLEEP DURING SHIFT CHANGE REPORT. LYING IN BED c HOB ELEVATED. 3LPM/NC. DAUGHTER SLEEPING ON GUEST BED. BREATHING EVEN AND UNLABORED. TELE VENTRICULAR BIGEM @ 70 PER RHYTHM STRIP. BED IN LOWEST POSITION. CALL LIGHT WITHIN REACH.
[2024-09-02 07:27] VITALS: BP 135/63
[2024-09-02] MEDS ORDERED: Magnesium Oxide 400 MG Tab PO SCH (09:00)
[2024-09-02 12:18] VITALS: BP 125/88
[2024-09-02 15:26] VITALS: BP 139/50
[2024-09-02] MEDS ORDERED: Sod Ferric Gluc Complx/Sucrose 125 MG in NS 100 ML IV SCH (17:15)
--- NOTE | 2024-09-02 17:47 | NUR ---
END OF SHIFT SUMMARY: A&Ox3-4. PLEASANT AND COOPERATIVE WITH CARE. ABLE TO UTILIZE CALL SYSTEM EFFECTIVELY, THOUGH FAMILY TYPICALLY COMES TO HALLWAY TO FIND STAFF OR PUSH BUTTON TO ADVOCATE PATIENT NEEDS. INCONTINENT OF URINE; ATTENDS IN PLACE. CONTINENT OF BOWEL. LBM TODAY. MEDS WHOLE c FLUIDS. UP TO BATHROOM 1PA c FWW & GB. UP TO CHAIR FOR MEALS TODAY. MULTIPLE FAMILY MEMBERS IN TO VISIT TODAY. PER PALLIATIVE, WILL HAVE ELBKW-XP-MDVR MEETING WITH FAMILY SOON. NO C/O PAIN OR DISCOMFORT. POWERGLIDE BRENNEN FLUSHES AND DRAWS. AV FISTULA RA WNL. CONTINUES TO DECLINE SNF; FAMILY AGREEABLE TO HOME c HH. TELE NOTED TO TACH TO 170s c ACTIVITY BUT SELF-CORRECTED QUICKLY. A-FLUTTER c BIGEM THIS AM; MAINTAINING AFIB ~103. BED IN LOWEST POSITION, CALL LIGHT WITHIN REACH, ALL NEEDS MET. REPORT TO ONCOMING NURSE.
[2024-09-02 19:24] VITALS: BP 119/50
[2024-09-03] VITALS (20 sets, daily range): BP systolic 45–128; BP diastolic 30–94
--- NOTE | 2024-09-03 03:58 | NUR ---
SHIFT SUMMARY ADMITTED FOR SEPTIC SHOCK. DNR CODE. REPEAT BLOOD CULTURES PENDING. ANTIB RX ARE SCHEDULED. POSSIBLE PNEUMONIA. HD PATIENT, FISTULA RUE. TELEMETRY: AFIB @ 89 BPM. COUGHING EVENT CAUSED ONE EVENT PER TELE, ROBITUSSIN GIVEN. POWERGLIDE IN LUE. SHE IS ON ELIQUIS. PALLIATIVE CARE IS ORDERED. DR. ZARAGOZA IS RENAL CONSULT. SHE IS A&O X3. INCONTINENT. 2-3 LPM @ [facility] VIA IA. 1 ASSIST W/FWW.
[2024-09-03 05:46] LABS: Albumin, Blood 2.4 g/dL (3.4-5.0); Anion Gap 10 mmol/L (3-11); Blood Urea Nitrogen 53 mg/dL (8-24); Bun/Creatinine Ratio 11.5 (12.0-20.0); CO2, Blood 30 mmol/L (21-32); Calcium, Blood 8.9 mg/dL (8.5-10.1); Chloride, Blood 100 mmol/L (98-108); Creatinine, Blood 4.59 mg/dL (0.40-1.00); Glomerular Filtration Rate 9 (60-); Glucose, Blood 117 mg/dL (70-99); Phosphorus, Blood 4.2 mg/dL (2.5-4.9); Potassium, Blood 4.2 mmol/L (3.5-5.5); Sodium, Blood 136 mmol/L (136-145); Vancomycin, Random 20.9 ug/mL
[2024-09-03] MEDS ORDERED: Epoetin Alfa-EPBX 10,000 Unit/ML 1ML Vial SC SCH (09:00)
--- NOTE | 2024-09-03 09:10 | NUR ---
OUT OF ROOM NOTE: PATIENT LEFT THE ROOM VIA BED AT 0858 TO DIALYSIS.
[2024-09-03] MEDS ORDERED: Albumin (Human) 25gm/100ml 100 ML IV PRN (10:05)
--- NOTE | 2024-09-03 10:16 | NUR ---
LOADING MACHINE ADJUSTER NOTIFICATION NOTE: NOTIFIED BY LOADING MACHINE ADJUSTER AT 0925, WHILE PATIENT AT DIALYSIS. PER LOADING MACHINE ADJUSTER, PATIENT HAD COUPLE EPISODE OF BIGEMINY, STILL AFIB HR IN THE 80'S BPM c OCCASIONAL PVC. DR. NEWMAN NOTIFIED DURING ROUNDING c NO NEW ORDER AT THIS TIME.
[2024-09-03] MEDS ORDERED: Vancomycin HCL 500 MG in NS 250 ML IV ONE (14:00)
--- NOTE | 2024-09-03 17:44 | NUR ---
SHIFT SUMMARY: PATIENT A/OX4, CALM, PLEASANT AND COOPERATIVE c CARE. PATIENT DENIES CP/PRESSURE, SOB, N/V AND DIZZINESS. PATIENT ON TELE, A-FIB HR IN THE 80-110'S BPM c OCCASIONAL PVC. NOTIFIED BY TRANSFER OPERATORSHARAN CISNEROS AT 1750'S, PATIENT HR WENT UP TO 120-150'S BPM, DR. Pitt WAS IN ROOM WHEN THIS EVENT HAPPENED. PER DR. Pitt HE WILL PUT ORDERED IN TO HELP HR DOWN. PATIENT STILL ON 3L O2 VIA NC, SATTING ABOVE 90%, LUNG SOUNDS FINE CRACKLES TO THE BASES c DRY NON PRODUCTIVE COUGH. PATIENT MEDICATED FOR COUGH PER EMAR c MOD EFFECT. PATIENT WAS DIALYZED TODAY. PATIENT REPORTS TIRED AND EXSHAUSTED AFTER DIALYSIS, SLEPT ON/OFF T/O SHIFT. PATIENT HAS POOR APPETITE, INCONTINENT OF BLADDER, ATTENDS IN PLACED AND CHANGED PRN, REPOSITIONED. PATIENT RECEIVED SCHEDULED MEDS PER EMAR. VITAL SIGNS REVIEWED. FAMILY AT BEDSIDE ON/OFF T/O THE DAY. SCD'S IN PLACED TO BLE'S. CALL LIGHT IN REACH.
[2024-09-03] MEDS ORDERED: Digoxin 0.25 MG in NS 4 ML IV ONE (18:30)
--- NOTE | 2024-09-03 19:01 | NUR ---
PALLIATIVE CARE VISIT: 1230 MET WITH FAMILY AND PT IN ROOM. SON, DAUGHTER CK AND SUSANNE PRESENT. JOHANNA WHO THEY STATE IS PRIMARY DECISION MAKER IS NOT PRESENT BUT WILL BE HERE LATER TO HAVE FAMILY MEETING WITH DR. NEWMAN. FAMILY HAVE AGREED TO TAKE HASEEB HOME WITH HOME HEALTH SERVICES. THEY WILL EACH TAKE TURNS STAYING WITH THEIR MOM TO ASSIST WITH CARE NEEDS. DISCUSSED CONCERNS WITH FAMILY PT IS NOT EATING WELL. PT STATES SHE DOES NOT EAT BECAUSE SHE IS SLEEPING WHEN THEY BRING THE FOOD AND IT GETS COLD. ADVISED PT TO REQUEST SNACKS FROM [place]. WILL ALSO REQUEST NEPRO TO BE PLACED IN [place] PT INDICATES SHE IS WILLING TO DRINK THOSE MEAL REPLACEMENT. FAMILY DENY ANY FURTHER CONCERNS. PT IS CURRENTLY EATING LUNCH AND ATE APPROX 25%. PT IS SLEEPY THROUGHOUT THE VISIT AND FREQUENTLY CLOSES EYES AND APPEARS TO SLEEP FOR SHORT SPURTS DURING VISIT. SPOKE TO PRIMARY RN ABOUT CONCERNS PT FOOD IS COLD AND SHE IS NOT WOKEN UP TO EAT. SHE WILL ADDRESS. SPOKE TO BETO UNLOADER AND REQUESTED NEPRO FOR NEARBY PANTRY.
[2024-09-04] VITALS (7 sets, daily range): BP systolic 107–137; BP diastolic 32–63
[2024-09-04] MEDS ORDERED: Benzonatate 100 MG Cap PO PRN (05:10)
--- NOTE | 2024-09-04 05:11 | NUR ---
SHIFT SUMMARY: PT IS ALERT AND ORIENTED. PT IS CALM AND COOPERATIVE WITH CARE. PT CALLS APPROPRIATELY. FAMILY IN THE ROOM OVERNIGHT. PT HAS COUGH, MEDICATING PER EMAR. PT REPORTED RIB PAIN R/T TO COUGHING, MEDICATING PER EMAR. PT ON 2 L O2 SATTING > 90%. PT DENIES NAUSEA, VOMITING, AND SOB. NO ACUTE CHANGES OVERNIGHT. BED IN LOW POSITION, CALL LIGHT WITHIN REACH. WILL CONTINUE TO MONITOR AND REPORT TO DAY NURSE.
[2024-09-04 05:47] LABS: BASOPHILS ABSOLUTE AUTO 0.06 K/mm3 (0.00-0.23); BASOPHILS PERCENT AUTO 0 % (0-2); EOSINOPHILS ABSOLUTE AUTO 0.25 K/mm3 (0.00-0.68); EOSINOPHILS PERCENT AUTO 2 % (0-6); Hematocrit 25.2 % (33.0-51.0); Hemoglobin 7.9 g/dL (11.5-16.0); IMMATURE GRAN PERCENT AUTO 3 % (0-1); LYMPHOCYTES ABSOLUTE AUTO 1.16 K/mm3 (0.84-5.20); LYMPHOCYTES PERCENT AUTO 7 % (21-46); MONOCYTES ABSOLUTE AUTO 1.61 K/mm3 (0.16-1.47); MONOCYTES PERCENT AUTO 10 % (4-13); Mean Corpuscular HGB 32.5 pg (26.0-34.0); Mean Corpuscular HGB Conc 31.3 g/dL (31.5-36.5); Mean Corpuscular Volume 104 fL (80-100); Mean Platelet Volume 10.4 fL (9.1-12.4); NEUTROPHILS ABSOLUTE AUTO 12.55 K/mm3 (1.96-9.15); NEUTROPHILS PERCENT AUTO 78 % (41-73); NRBC ABSOLUTE 0.02 K/mm3 (0.00-0.02); NRBC Auto 0.1 /100 WBC (0.0-0.2); Platelet Count 132 K/mm3 (150-400); RDW Coefficient Variation 15.3 % (11.7-14.2); RDW Standard Deviation 55.8 fL (35.1-46.3); Red Blood Cell Count 2.43 M/mm3 (3.80-5.20); White Blood Cell Count 16.03 K/mm3 (4.00-11.30)
[2024-09-04 06:20] LABS: Albumin, Blood 2.8 g/dL (3.4-5.0); Anion Gap 7 mmol/L (3-11); Blood Urea Nitrogen 35 mg/dL (8-24); Bun/Creatinine Ratio 9.4 (12.0-20.0); CO2, Blood 33 mmol/L (21-32); Calcium, Blood 9.1 mg/dL (8.5-10.1); Chloride, Blood 98 mmol/L (98-108); Creatinine, Blood 3.74 mg/dL (0.40-1.00); Glomerular Filtration Rate 11 (60-); Glucose, Blood 102 mg/dL (70-99); Phosphorus, Blood 3.5 mg/dL (2.5-4.9); Potassium, Blood 4.2 mmol/L (3.5-5.5); Sodium, Blood 134 mmol/L (136-145); Vancomycin, Random 23.2 ug/mL
--- NOTE | 2024-09-04 10:20 | NUR ---
AIRCRAFT MECHANIC ELECTRICAL AND RADIO NOTIFICATION NOTE: NOTIFIED BY AIRCRAFT MECHANIC ELECTRICAL AND RADIOBRANDON AT 1019. PER ANICETO UPON REVIEWING PATIENT TELE STRIP AND FOUND OUT, PATIENT HAD PAUSES THE FIRST ONE AT 0345 FOR 2 SECONDS, THE SECOND EVENT AT 0729 FOR 2.2 SECONDS AND THE LAST ONE AT 0740 FOR 2.[address] HOLLINS REGARDING THIS CONCERN, NO NEW ORDER AT THIS TIME.
--- NOTE | 2024-09-04 16:03 | NUR ---
SHIFT SUMMARY NOTE: PATIENT A&O X4, APPEARS WITHDRAWN, PLEASANT AND COOPERATIVE WITH CARE. PATIENT ON TELE STILL A FIB, HEART RATE IN 60S-90S BPM. PATIENT HAD THREE EPISODES OF PAUSES THIS SHIFT, DR. HOLLINS IS AWARE. LUNG SOUNDS WERE CRACKLES IN THE BASES, RR ARE SHALLOW AND UNLABORED, PATIENT CURRENTLY ON 3 LITERS O2 VIA NC SATTING >95%. PATIENT DENIES ANY SOB, CHEST PAIN OR PRESSURE, OR ANY DIZZINESS. PATIENT WAS GIVEN PRN GUAIFENESIN AND TESSALON JEAN MARIE FOR COUGH PER EMAR. PATIENT HAS SCANT WHITE COLOR PRODUCTIVE COUGH. SUCTION WAS SET UP AT BEDSIDE. PATIENT CONTINUES TO HAVE POOR APPETITE, INCONTINENT OF BLADDER, ATTENDS IN PLACE AND CHANGED PRN. PATIENT HAS HAD NO BM FOR 2 DAYS. PATIENT REPOSITIONED T/O SHIFT. PATIENT DENIES GENERALIZED PAIN. PATIENT HAS SCDs TO BLEs. PATIENTS FAMILY AT BEDSIDE T/O THE DAY. PATIENT APPEARS RESTING IN BED T/O SHIFT. CALL LIGHT IN REACH.
[2024-09-05] VITALS (8 sets, daily range): BP systolic 108–136; BP diastolic 43–64
--- NOTE | 2024-09-05 03:32 | NUR ---
SHIFT SUMMARY:PT IS ALERT AND ORIENTED ABLE TO MAKE HER NEEDS KNOWN MILD FORGETFULLNESS AT TIMES, 2L NC LUNGS CLEAR BUT DIM STRONG COUCH NOTED, NO TELE ORDERS, SKIN IS INTACT, PT IS INC OF BAB, Q2HR TURNS AT NOC, PT IS BED BOUND BY CHOICE IS PRESENTING A FAILURE TO THRIVE, DAUGHTER AT BEDSIDE SLEEPING, AWAITING BLOOD CULTURES TO R/O VEGITATION OF HEAR, NO CARDIAC PAUSES NOTED THIS SHIFT, PT DID TAKE PRN COUGH MEDICATION TO ASSIST WITH SLEEP BECAUSE OF STRONG COUGH, FAMILY PLANS T TAKE PT HOME
[2024-09-05 06:03] LABS: Albumin, Blood 2.9 g/dL (3.4-5.0); Anion Gap 11 mmol/L (3-11); Blood Urea Nitrogen 47 mg/dL (8-24); Bun/Creatinine Ratio 10.8 (12.0-20.0); CO2, Blood 32 mmol/L (21-32); Calcium, Blood 9.7 mg/dL (8.5-10.1); Chloride, Blood 95 mmol/L (98-108); Creatinine, Blood 4.36 mg/dL (0.40-1.00); Glomerular Filtration Rate 9 (60-); Glucose, Blood 103 mg/dL (70-99); Phosphorus, Blood 3.9 mg/dL (2.5-4.9); Potassium, Blood 4.4 mmol/L (3.5-5.5); Sodium, Blood 134 mmol/L (136-145)
[2024-09-05 10:12] LABS: HBV CORE ANTIBODIES,TOTAL Negative (Negative)
[2024-09-05 14:48] LABS: HEPATITIS B SURFACE ANTIGEN Negative (Negative)
[2024-09-05 14:59] LABS: HEPATITIS B SURFACE ANTIBODY <3.10 IU/L
--- NOTE | 2024-09-05 17:39 | NUR ---
SHIFT SUMMARY: PATIENT A&OX4, APPEARS VERY FATIGUED. PATIENT IS PLEASANT c COOPERATIVE c CARE. ON TELE AFIB c SOME PVCS, NO PAUSES OR NEW TELE CHANGES. HR IN THE 60s-110s BPM. LUNGS ARE CLEAR WITH SOME CRACKLES IN THE BASES, ON 2 LITERS O2 NC, SATTING >95%, RR ARE SHALLOW AND UNLABORED. PATIENT MEDICATED FOR COUGH PER EMAR. PATIENT STOOD FROM BED TO BSC, AND THEN CHAIR TODAY WITH 1 PER ASSIST c GAITBELT AND WALKER. PATIENT HAD 3 PER MAX TO GET BACK INTO BED W/ WALKER. PATIENT WAS ABLE TO USE BEDPAN, BUT HAD LITTLE URINE OUTPUT TODAY. PATIENT REPORTS NO CONSTIPATION OR DISCOMFORT. LAST BM WAS THREE DAYS AGO. PATIENTS R ARM FISTULA APPEARS TO BE HARD TODAY, DR. HOLLINS IS AWARE. PATIENT HAD FAMILY AT BEDSIDE T/O SHIFT, ASKED QUESTIONS APPRORIATELY. SCDs ARE IN PLACE. CALL LIGHT IN REACH.
[2024-09-05] MEDS ORDERED: Albuterol 2.5 MG/3 ML VIAL INH PRN (18:05)
[2024-09-05] MEDS ORDERED: FentaNYL Citrate 50 MCG/ML 2 ML Injection IV PRN (21:10)
[2024-09-06] VITALS (19 sets, daily range): BP systolic 101–161; BP diastolic 39–458
[2024-09-06 06:32] LABS: Vancomycin, Random 18.3 ug/mL
--- NOTE | 2024-09-06 06:44 | NUR ---
SHIFT SUMMARY AT START OF SHIFT, PT DAUGHTERS AT BEDSIDE. OTHER DAUGHTER CAME AND STAYED THE NIGHT WITH PT. PT COMPLAINED OF RIB PAIN. MEDICATED PER EMAR. STATED HAD A HEADACHE, EDUCATED PT THAT THERE WERE STILL SEVERAL HOURS BEFORE NEXT DOSE. BREAK NURSE CALLED HOSPITALIST FOR BREAKTHROUGH PAIN COVERAGE. ORDERED IV FENTANYL 25-50MCG Q4HRS. INFORMED PT THERE IS NOW ALTERNATE COVERAGE. PT DECLINED FOR NOW, STATED SHE JUST WANTED TO SLEEP. APPROX 0420, PT BEGAN COUGHING UP SPUTUM FINALLY. SUCTION GIVEN FOR EFFECTIVE REMOVAL. BREATHING TX ORDERED, PT WAS WHEEZING AGAIN. OFFERED PAIN MEDICATION, PT DECLINED FOR NOW. PT WENT BACK TO SLEEP, WAKING FOR MORNING MEDICATION.
--- NOTE | 2024-09-06 07:35 | NUR ---
ASSUMPTION OF CARE: ASSUMED CARE OF PATIENT. WOKEN FOR BEDSIDE SHIFT REPORT. DAUGHTER ASLEEP ON GUEST BED. BREATHING EVEN AND UNLABORED c SNORE. CONTINUOUS BiOx IN PLACE; MAINTAINING SPO2 >92% ON 2LPM/NC. CPAP @ BEDSIDE; REPORTEDLY DOES NOT TOLERATE. TELE @ A-FLUTTER c BBB AND PVCs @ 82. BED IN LOWEST POSITION. CALL LIGHT WITHIN REACH. NO ACUTE NEEDS.
[2024-09-06] MEDS ORDERED: Vancomycin HCL 500 MG in NS 250 ML IV SCH (14:00)
--- NOTE | 2024-09-06 18:47 | NUR ---
END OF SHIFT SUMMARY: A&Ox4. PLEASANT AND COOPERATIVE WITH CARE. ABLE TO ADVOCATE NEEDS EFFECTIVELY. CONTINENT OF BOWEL; LBM TODAY. OLIGURIC AND CONTINENT/INCONTINENT OF URINE. MEDS WHOLE c FLUIDS. NO C/O PAIN OR DISCOMFORT. TELE AFLUTTER c BBB & PVCs. HD TODAY c 1000mL FLUID REMOVAL. PLAN FOR DC TOMORROW c HH. BED IN LOWEST POSITION, CALL LIGHT WITHIN REACH, ALL NEEDS MET. REPORT TO ONCOMING NURSE.
--- NOTE | 2024-09-06 19:19 | NUR ---
PALLIATIVE CARE VISIT: MET WITH PT AND FAMILY MEMBER JOHANNA AND SON IN ROOM. PT IS MUCH MORE ALERT AND ABLE TO CONVERSE WITH FULL CONVERSATION TODAY. PT STATES SHE FEELS MUCH BETTER AFTER GETTING A IRON TRANSFUSION. WE DISCUSS PLANS FOR DISCHARGE TO GO HOME WITH HOME HEALTH SERVICES. HOSPITAL BED WILL BE DELIVERED TOMORROW TO HER HOME. PT HAS A BEDSIDE COMMODE AND WHEELCHAIR FOR TRANSPORTATION. LEATHER PRODUCTION MACHINE OPERATOR DISCUSSES DISCHARGE PLANS WITH THEM DURING OUR MEETING. DISCUSS GOALS AND PT WANTS TO GET STRONGER. DISCUSS HOW HOME HEALTH WORKS WITH PT. EDUCATE PT ON IMPORTANCE OF ADHERENCE TO EXERCISE ROUTING ON DAYS PHYSICAL THERAPY IS NOT PRESENT. PT STATES SHE WANTS TO GET STRONGER AND IS WILLING TO DO EXERCISES DAILY. PT AND FAMILY DENY ANY FURTHER CONCERNS REGARDING EQUIPMENT NEEDS AND SYMPTOM MANAGEMENT.
[2024-09-07 00:08] VITALS: BP 133/51
--- NOTE | 2024-09-07 03:35 | NUR ---
Nursing [facility]en Shift Summary. Vital signs stable. Patient lethargic after dialysis on dayshift although easy to awaken. Alert and oriented x4. Has received Vancomycin treatments see EMAR for details. Patient resting quietly throughout restaurant shift leader. Family in room to assist with patient needs. Bed rails up x2, Bed in lowest position, call light within reach. Will continue to monitor.
--- NOTE | 2024-09-07 03:55 | NUR ---
I HAVE READ AND AGREE WITH NURSE STUDENT DOCUMENTION AND CARE, I HAVE ASSISTED AND OBSERVED IN SAID CARE.
[2024-09-07 04:04] VITALS: BP 106/47
[2024-09-07 05:54] LABS: Vancomycin, Random 21.6 ug/mL
[2024-09-07 07:12] VITALS: BP 125/55
--- NOTE | 2024-09-07 07:59 | NUR ---
ASSUMPTION OF CARE: ASSUMED CARE OF PATIENT. WOKEN FOR BEDSIDE SHIFT REPORT. CONTINUOUS BiOx ~85%; NC NOTED TO BE SHIFTED TO SIDE OF NOSE. REPLACED CANNULA INTO NARES, COACHED TO TAKE A FEW DEEP NASAL BREATHS AND SPO2 >92%. DAUGHTER ON GUEST BED, ALSO AWAKE DURING REPORT. TELE AFIB @ 89 c PVCs. VS STABLE, THOUGH NOTED TO HAVE LOW-GRADE FEVER OF 99.4. NO C/O PAIN OR DISCOMFORT. WILL RECHECK LATER THIS MORNING. BED IN LOWEST POSITION. CALL LIGHT WITHIN REACH. NO ACUTE NEEDS.
[2024-09-07] MEDS ORDERED: Metoprolol Tartrate 25 MG Tab PO SCH (12:00)
--- NOTE | 2024-09-07 12:18 | NUR ---
PATIENT HOME MEDS: ASA 81MG QD BUSPAR 7.5MG BID OXYBUTYNIN ER 5MG QD OMEPRAZOLE 20MG QD. DESVENLAFAXINE ER 50MG QD METFORMIN ER 500MG 2 PO BID ESTRADIOL 0.1MG/GM CREAM - INTRAVAGINALLY TIW. ATORVASTATIN 20MG QHS. LEVOTHYROXINE 125MCG QAM. GLIMEPIRIDE 4MG QD. PIOGLITAZONE 30MG QD. NYSTATIN CREAM. DORZOLAMIDE AND TIMOLOL 2%/0.5% OPHTHALMIC SOLUTION
[2024-09-07 12:48] VITALS: BP 124/39
[2024-09-07] MEDS ORDERED: BENZ100A PO (13:21)
[2024-09-07] MEDS ORDERED: MIRTAZAPINE7.5 M1 PO (13:21)
[2024-09-07] MEDS ORDERED: ROBITUSSIN100 MG/5 M PO (13:23)
[2024-09-07] MEDS ORDERED: VISBIOME 112.51 EACH PO (13:23)
[2024-09-07] MEDS ORDERED: CIPR500 PO (13:24)
--- NOTE | 2024-09-07 19:05 | NUR ---
DISCHARGE SUMMARY: A&Ox4. PLEASANT AND COOPERATIVE WITH CARE. CALLS APPROPRIATELY AND IS ABLE TO ADVOCATE NEEDS EFFECTIVELY. 1-2PA c FWW & GB. CONTINENT OF BOWEL AND BLADDER. MEDS WHOLE c FLUIDS. TELE AFIB. NO C/O PAIN OR DISCOMFORT. WORKED c PT/OT TODAY. SEEN BY DIETARY. HOME O2 EVAL YIELDED 2LPM/NC. O2 DROPPED OFF BY JARED AND DELIVERED TO HOME. MEDICATIONS FAXED TO [facility]. INSTRUCTED TO FOLLOW-UP WITH PCP LEFT FLOOR WITH ALL BELONGINGS AND DISCHARGE PACKET, ESCORTED BY FAMILY. TRANSPORTATION PROVIDED BY FAMILY VIA POV.
== END 2024-09-07 16:54 | disposition home health service (06) | DRG 871 ==
LOC: ER 21:09 → ICUE 23:54 → ERHOLD 23:54 → MEDS 23:54 → ICUE 08-29 00:30 → MEDS 08-31 13:09 → ENPENDDIS 09-07 13:09 → MEDS 09-07 16:54
PROVIDERS: Emergency Medicine; Hospitalist; Internal Medicine; ADMIT Internal Medicine
PROC: 3E04329 Introduction of Other Anti-infective into Central Vein, Percutaneous Approach (ICD-10-PCS; principal; 2024-08-28)
PROC: 06HY33Z Insertion of Infusion Device into Lower Vein, Percutaneous Approach (ICD-10-PCS; 2024-08-28)
PROC: 3E043XZ Introduction of Vasopressor into Central Vein, Percutaneous Approach (ICD-10-PCS; 2024-08-28)
PROC: 5A1D70Z Performance of Urinary Filtration, Intermittent, Less than 6 Hours Per Day (ICD-10-PCS; 2024-08-30)
DX: A41.81 Sepsis due to Enterococcus (principal); G92.8 Other toxic encephalopathy; J15.8 Pneumonia due to other specified bacteria; R65.21 Severe sepsis with septic shock; N18.6 End stage renal disease; J96.01 Acute respiratory failure with hypoxia; I50.32 Chronic diastolic (congestive) heart failure; I13.2 Hypertensive heart and chronic kidney disease with heart failure and with stage 5 chronic kidney disease, or end stage renal disease; I47.20 Ventricular tachycardia, unspecified; Z66 Do not resuscitate; E87.20 Acidosis, unspecified; E03.9 Hypothyroidism, unspecified; D63.1 Anemia in chronic kidney disease; D50.9 Iron deficiency anemia, unspecified; E78.5 Hyperlipidemia, unspecified; M10.9 Gout, unspecified; K21.9 Gastro-esophageal reflux disease without esophagitis; E53.8 Deficiency of other specified B group vitamins; I48.0 Paroxysmal atrial fibrillation; E88.09 Other disorders of plasma-protein metabolism, not elsewhere classified; Z60.2 Problems related to living alone; Z96.652 Presence of left artificial knee joint; Z88.0 Allergy status to penicillin; Z79.01 Long term (current) use of anticoagulants; Z99.2 Dependence on renal dialysis; Z88.8 Allergy status to other drugs, medicaments and biological substances; Z79.82 Long term (current) use of aspirin; Z79.890 Hormone replacement therapy; Z79.02 Long term (current) use of antithrombotics/antiplatelets; Z95.2 Presence of prosthetic heart valve
CPT/HCPCS: 0241U; 36415; 36556; 70450; 71045; 80053; 80069; 80202; 80320; 82140; 82803; 83540; 83550; 83605; 83735; 83880; 84100; 84439; 84443; 84484; 85025; 85027; 85610; 85730; 86704; 87040; 87077; 87186; 87340; 92610; 93005; 93010; 93306; 94640; 94660; 94664; 94760; 94761; 94762; 96361; 96365; 96368; 96375; 97110; 97161; 97166; 97530; 97535; 99291-25; A9270; C1751; J0692; J1160; J1580; J1644; J2760; J2916; J3370; J7040; J7050; J7060; P9047; Q5106

== ENCOUNTER 2024-09-29 13:00 | Emergency (ER) | payer MEDICARE, OTHER ==
[~2024-09-29] VITALS: Ht 162.6 cm; Wt 86.1 kg
[~2024-09-29 13:00] MED LIST changes: +ALLO100 PO; +BENZ100A PO; +CIPR500 PO; -Calcium Chloride 10% 10 ML SYR IV ONE; +ELIQUIS2.5 MG PO; +LEVOTHYROXINE100 M10 PO; +METOPROLOL TART25 MG PO; +MIRTAZAPINE7.5 M1 PO; +ROBITUSSIN100 MG/5 M PO; -Sodium Bicarb 8.4% 50 mEq Syringe IV ONE; +TORSE20 PO; +VISBIOME 112.51 EACH PO
[2024-09-29] MEDS ORDERED: NS 1,000 ML IV SCH (13:20)
[2024-09-29 13:49] LABS: BASOPHILS ABSOLUTE AUTO 0.14 K/mm3 (0.00-0.23); BASOPHILS PERCENT AUTO 1 % (0-2); EOSINOPHILS ABSOLUTE AUTO 0.24 K/mm3 (0.00-0.68); EOSINOPHILS PERCENT AUTO 1 % (0-6); Hematocrit 30.9 % (33.0-51.0); Hemoglobin 9.6 g/dL (11.5-16.0); IMMATURE GRAN ABSOLUTE AUTO 0.42 K/mm3 (0.00-0.10); IMMATURE GRAN PERCENT AUTO 2 % (0-1); LYMPHOCYTES ABSOLUTE AUTO 0.95 K/mm3 (0.84-5.20); LYMPHOCYTES PERCENT AUTO 4 % (21-46); MONOCYTES ABSOLUTE AUTO 2.54 K/mm3 (0.16-1.47); MONOCYTES PERCENT AUTO 12 % (4-13); Mean Corpuscular HGB 31.7 pg (26.0-34.0); Mean Corpuscular HGB Conc 31.1 g/dL (31.5-36.5); Mean Corpuscular Volume 102 fL (80-100); Mean Platelet Volume 10.3 fL (9.1-12.4); NEUTROPHILS ABSOLUTE AUTO 17.29 K/mm3 (1.96-9.15); NEUTROPHILS PERCENT AUTO 80 % (41-73); Platelet Count 213 K/mm3 (150-400); RDW Coefficient Variation 17.2 % (11.7-14.2); RDW Standard Deviation 63.1 fL (35.1-46.3); Red Blood Cell Count 3.03 M/mm3 (3.80-5.20); White Blood Cell Count 21.58 K/mm3 (4.00-11.30)
[2024-09-29] MEDS ORDERED: Vancomycin HCL 2,000 MG in NS 520 ML IV ONE (13:55)
[2024-09-29] MEDS ORDERED: Cefepime HCl 1,000 MG in NS 100 ML IV ONE (13:55)
[2024-09-29 14:12] LABS: Albumin, Blood 2.6 g/dL (3.4-5.0); Albumin/Globulin Ratio 0.5 (0.8-1.8); Bilirubin, Total 0.6 mg/dL (0.1-1.0); Creatinine, Blood 3.33 mg/dL (0.40-1.00); Globulin, Blood 4.8 g/dL (2.2-4.0); Potassium, Blood 4.2 mmol/L (3.5-5.5); Total Protein, Blood 7.4 g/dL (6.4-8.2)
[2024-09-29 14:45] VITALS: BP 110/63
[2024-09-29] MEDS ORDERED: TORSE20 PO (15:13)
[2024-09-29] MEDS ORDERED: FERROUS SULFAT324 MG PO (15:14)
[2024-09-29 15:43] LABS: Base Excess Venous 7.6 mmol/L; Bicarbonate Venous 30.8 mmol/L (24.0-30.0); PCO2 Venous 41.7 mmHg (38-42); pH Blood Venous 7.48 (7.34-7.37)
[2024-09-29] MEDS ORDERED: Magnesium Hydroxide Conc 10 ML UDC PO PRN (15:55)
--- NOTE | 2024-09-29 16:21 | NUR ---
PT SENT TO ER FROM [facility] DUE TO UNSTABLE CARDIAC STATUS. PT AWAKE / ALERT AND ABLE TO VERBALIZE NEEDS AND CONCERNS. WILLIE AV FISTULA WITH FISTULA NEEDLES STILL IN PLACE DUE TO EMERGENCY TRANSPORT FROM DIALYSIS CLINIC. PLAN FOR ADMIT PRESENTED TO PATIENT AND DAUGHTER. PT REFUSED ADMIT AND REQUESTED DISCHARGE TO HOME ON HOSPICE CARE AFTER CAERFUL DISCUSSION WITH DAUGHTER AND DR WALDRON ( ER PROVIDER ) FISTULA NEEDLES REMOVED AND PRESSURE HELD MANUALLY FOR 5 MIN. SITES STABLE. COBAN WRAP APPLIED TO NEEDLE SITES.
[2024-09-29] MEDS ORDERED: Ativan1 MG SL (16:34)
[2024-09-29] MEDS ORDERED: MORP20L PO (16:34)
[2024-09-29] MEDS ORDERED: HYOS.125 SL (16:34)
[2024-09-29] MEDS ORDERED: Scopolamine Hydrobromide Patch TOP ONE (16:35)
[2024-09-30] MEDS ORDERED: Enoxaparin 30 MG/0.3 ML SYR SC SCH (09:00)
--- NOTE | 2024-09-30 10:41 | NUR ---
MET WITH PATIENT AND FAMILY. AURAR WAS EXPRESSING DESIRE TO GO HOME. FAMILY HAD DISCUSSION ABOUT HOSPICE AND HAD MADE THE DECISION TO GO HOME WITH MATTHEW.
== END 2024-09-29 17:44 | disposition home or self-care (01) ==
LOC: ER 13:00
PROVIDERS: Student in an Organized Health Care Education/Training Program
DX: I12.0 Hypertensive chronic kidney disease with stage 5 chronic kidney disease or end stage renal disease (principal); N18.6 End stage renal disease; R65.21 Severe sepsis with septic shock; J81.1 Chronic pulmonary edema; R00.0 Tachycardia, unspecified; E78.5 Hyperlipidemia, unspecified; E03.9 Hypothyroidism, unspecified; I25.2 Old myocardial infarction; I48.91 Unspecified atrial fibrillation; R09.02 Hypoxemia; E87.70 Fluid overload, unspecified; Z88.0 Allergy status to penicillin; Z88.8 Allergy status to other drugs, medicaments and biological substances; Z91.09 Other allergy status, other than to drugs and biological substances; Z79.890 Hormone replacement therapy; Z79.01 Long term (current) use of anticoagulants; Z79.899 Other long term (current) drug therapy; Z96.652 Presence of left artificial knee joint; Z99.2 Dependence on renal dialysis
CPT/HCPCS: 71045; 80053; 82803; 83605; 83880; 84484; 85025; 93005; 93010; 96365; 96366; 96368; 96376; 99285-25; A9270; J0282; J0692; J3370; J7030; J7040; J7060